=== PATIENT | male | born 1965 | race Caucasian/White ===

== ENCOUNTER 2024-03-13 15:45 | Emergency (ER) | payer OTHER ==
[~2024-03-13] VITALS: Ht 167.6 cm; Wt 86.2 kg
[2024-03-13] MEDS ORDERED: GLIPIZIDE10 M2 PO (16:15)
[2024-03-13] MEDS ORDERED: METFORMIN XR500 MG PO (16:15)
[2024-03-13] MEDS ORDERED: JARDIANCE10 MG PO (16:15)
[2024-03-13] MEDS ORDERED: LISINOPRIL20 MG PO (16:15)
[2024-03-13] MEDS ORDERED: Lidocaine Hydrochloride 2% 10 ML AMP SC ONE (16:25)
[2024-03-13] MEDS ORDERED: Bacitracin Zinc 14 GM TUBE T ONE (16:25)
== END 2024-03-13 17:08 | disposition home or self-care (01) ==
LOC: ED 15:45
DX: S51.811A Laceration without foreign body of right forearm, initial encounter (principal); W26.8XXA Contact with other sharp object(s), not elsewhere classified, initial encounter; Y93.89 Activity, other specified; Y92.89 Other specified places as the place of occurrence of the external cause; Y99.8 Other external cause status